=== PATIENT | female | born 1975 | race African-American/Black ===

== ENCOUNTER 2024-09-24 14:28 | Inpatient (IN) | payer MEDICAID ==
[~2024-09-24] VITALS: Ht 157.5 cm; Wt 106.6 kg
[2024-09-24] MEDS: IV NORMAL SALINE 1000 ML BAG IV ONE ×2 (14:50→17:28)
[2024-09-24] MEDS ORDERED: VANCOMYCIN IV 200 ML ONE (14:52)
[2024-09-24] MEDS ORDERED: PIPERACILLIN/TAZOBACTAM/D5W 50 ML IV ONE (14:52)
[2024-09-24] MEDS: PIPERACILLIN SODIUM/TAZOBACTAM 3.375 G in IV DEXTROSE 5% 50 ML IV ONE (14:56)
[2024-09-24 15:01] LABS: PLATELET COUNT (AUTO) 295 K/uL (179-408); RED BLOOD CELL COUNT(AUTO) 3.58 MIL/uL (3.63-4.92); RED CELL DISTRIBUTION WIDTH 18.6 % (12.3-17.7); WHITE BLOOD COUNT (AUTO) 4.5 K/uL (3.8-11.8)
[2024-09-24] MEDS ORDERED: MORP15TA PO (15:14)
[2024-09-24] MEDS ORDERED: ACET-3117 PO (15:14)
[2024-09-24] MEDS ORDERED: MIRT-74 PO (15:14)
[2024-09-24] MEDS ORDERED: ACET-2030 PO (15:14)
[2024-09-24] MEDS ORDERED: TIZA4TAB5 PO (15:14)
[2024-09-24] MEDS ORDERED: BISA-79 PO (15:14)
[2024-09-24] MEDS ORDERED: NALO4SPR NS (15:14)
[2024-09-24] MEDS ORDERED: MULT-594 PO (15:14)
[2024-09-24] MEDS ORDERED: HYDR-501 PO (15:14)
[2024-09-24] MEDS ORDERED: DOCU100T2 PO (15:14)
[2024-09-24] MEDS ORDERED: GABA300C PO (15:14)
[2024-09-24] MEDS ORDERED: OXYC5TAB3 PO (15:14)
[2024-09-24 15:16] LABS: ASPARTATE AMINOTRANSFERASE 14 U/L (15-37); CREATININE 0.6 mg/dL (0.6-1.3); SODIUM SERUM 141 mmol/L (136-145); TOTAL PROTEIN, SERUM 8.2 g/dL (6.4-8.2); UREA NITROGEN, BLOOD 12 mg/dL (7-18)
[2024-09-24 15:24] LABS: *BILIRUBIN,URIN NEGATIVE (NEGATIVE); *BLOOD, URINE 1+ (NEGATIVE); *CLARITY,URINE CLEAR (CLEAR); *COLOR,URINE YELLOW (YELLOW); *KETONES,URINE NEGATIVE (NEGATIVE); *PROTEIN,URINE NEGATIVE (NEGATIVE); *UROBILINOGEN,URINE 1.0 E.U./dl (NORMAL); LEUKOCYTE ESTERASE ,URINE 1+ (NEGATIVE); NITRITE, URINE NEGATIVE (NEGATIVE); UGLUCOSE NEGATIVE (NEGATIVE)
[2024-09-24] MEDS ORDERED: IPRATROPIUM BROMIDE 0.5 MG/2.5 ML NEBU ONE (15:24)
[2024-09-24] MEDS ORDERED: ALBUTEROL SULFATE 2.5 MG/3 ML NEBU ONE (15:24)
[2024-09-24 15:30] VITALS: O2SAT 95
[2024-09-24] MEDS: ALBUTEROL SULFATE 2.5 MG/3 ML NEBU NEB ONE (15:30)
[2024-09-24] MEDS: IPRATROPIUM BROMIDE 0.5 MG/2.5 ML NEBU NEB ONE (15:30)
[2024-09-24 15:45] VITALS: O2SAT 96
[2024-09-24] MEDS: VANCOMYCIN IV 1,000 MG in IV DEXTROSE 5% 250 ML IV ONE (15:45)
[2024-09-24 16:05] LABS: SQUAMOUS EPITHELIAL CELL,UR FEW /HPF (NONE SEEN)
[2024-09-24] MEDS ORDERED: KETOROLAC TROMETHAMINE 15 MG INJ ONE (17:19)
[2024-09-24] MEDS: KETOROLAC TROMETHAMINE 15 MG INJ IVP ONE (17:25)
[2024-09-24] MEDS ORDERED: MORPHINE SULFATE 4 MG/1 ML DISP.SYRIN ONE (18:20)
[2024-09-24] MEDS ORDERED: ONDANSETRON 4 MG/2 ML VIAL ONE (18:20)
[2024-09-24] MEDS: ONDANSETRON 4 MG/2 ML VIAL IV ONE (18:27)
[2024-09-24] MEDS: MORPHINE SULFATE 4 MG/1 ML DISP.SYRIN IV ONE (18:27)
[2024-09-24 18:30] VITALS: BP 94/52
[2024-09-24 19:00] VITALS: BP 106/38; TEMP 97.8; O2SAT 97
[2024-09-24] MEDS ORDERED: NALOXONE NASAL SPRAY 4 MG SPRAY NS PRN (21:00)
[2024-09-24] MEDS ORDERED: ENOXAPARIN SODIUM 40 MG/0.4 ML DISP.SYRIN SQ SCH (21:15)
[2024-09-24] MEDS ORDERED: ONDANSETRON 4 MG/2 ML VIAL IV PRN (21:15)
[2024-09-24] MEDS ORDERED: PIPERACILLIN SODIUM/TAZOBACTAM 3.375 G in IV DEXTROSE 5% 50 ML IV SCH (22:00)
[2024-09-24] MEDS: OXYCODONE HCL 5 MG TABLET PO PRN (22:11)
[2024-09-24] MEDS: GABAPENTIN 300 MG CAPSULE PO SCH (22:12)
[2024-09-24] MEDS: MIRTAZAPINE 15 MG TABLET PO SCH (22:14)
[2024-09-24] MEDS: ENOXAPARIN SODIUM 40 MG/0.4 ML DISP.SYRIN SQ SCH (22:21)
[2024-09-24] MEDS: PIPERACILLIN SODIUM/TAZOBACTAM 3.375 G in IV DEXTROSE 5% 50 ML IV SCH (22:52)
[2024-09-25] VITALS (7 sets, daily range): BP systolic 13–143; BP diastolic 49–74; TEMP 97.8–98.9; O2SAT 92–97
[2024-09-25] MEDS: ACETAMINOPHEN 325 MG TABLET PO PRN (00:21)
[2024-09-25] MEDS ORDERED: VANCOMYCIN IV 200 ML ONE (03:20)
[2024-09-25] MEDS: VANCOMYCIN IV 1,000 MG in IV DEXTROSE 5% 250 ML IV ONE (03:34)
[2024-09-25] MEDS ORDERED: PIPERACILLIN SODIUM/TAZOBACTAM 3.375 G in IV DEXTROSE 5% 50 ML IV SCH (06:00)
[2024-09-25] MEDS: PANTOPRAZOLE SODIUM 40 MG TABLET.DR PO SCH (06:46)
[2024-09-25 07:07] LABS: PLATELET COUNT (AUTO) 271 K/uL (179-408); RED BLOOD CELL COUNT(AUTO) 3.34 MIL/uL (3.63-4.92); RED CELL DISTRIBUTION WIDTH 19.0 % (12.3-17.7); WHITE BLOOD COUNT (AUTO) 3.9 K/uL (3.8-11.8)
[2024-09-25 07:27] LABS: ASPARTATE AMINOTRANSFERASE 11.0 U/L (15-37); CREATININE 0.7 mg/dL (0.6-1.3); SODIUM SERUM 142.0 mmol/L (136-145); TOTAL PROTEIN, SERUM 7.4 g/dL (6.4-8.2); UREA NITROGEN, BLOOD 9.0 mg/dL (7-18)
[2024-09-25] MEDS: MULTIVITAMINS,THERAPEUTIC TABLET PO SCH (08:46)
[2024-09-25] MEDS: DOCUSATE SODIUM 100 MG CAPSULE PO SCH (08:47)
[2024-09-25] MEDS: VANCOMYCIN HCL 1,500 MG in IV DEXTROSE 5% 500 ML IV SCH (10:49)
[2024-09-25] MEDS ORDERED: ALBU8.5H8 INH (11:33)
[2024-09-25] MEDS ORDERED: MORP15TA60 PO (11:44)
[2024-09-25] MEDS: MAGNESIUM OXIDE 400 MG TABLET PO ONE (12:13)
[2024-09-25] MEDS: PIPERACILLIN SODIUM/TAZOBACTAM 3.375 G in IV DEXTROSE 5% 100 ML IV SCH (13:04)
[2024-09-25] MEDS: MORPHINE SULFATE SR 15 MG TABLET.SA PO SCH (13:04)
[2024-09-25] MEDS: ARGININE/GLUTAMINE/CALCIUM BMB 1 EACH POWD.PACK PO SCH (17:25)
[2024-09-25] MEDS: TRAZODONE 50 MG TABLET PO SCH (21:29)
[2024-09-26 06:38] VITALS: BP 144/61; TEMP 99.6; O2SAT 97
[2024-09-26 06:50] LABS: PLATELET COUNT (AUTO) 296 K/uL (179-408); RED BLOOD CELL COUNT(AUTO) 3.52 MIL/uL (3.63-4.92); RED CELL DISTRIBUTION WIDTH 18.6 % (12.3-17.7); WHITE BLOOD COUNT (AUTO) 4.3 K/uL (3.8-11.8)
[2024-09-26 07:03] LABS: CREATININE 0.8 mg/dL (0.6-1.3); SODIUM SERUM 141.0 mmol/L (136-145); UREA NITROGEN, BLOOD 7.0 mg/dL (7-18)
[2024-09-26] MEDS: MAGNESIUM OXIDE 400 MG TABLET PO ONE (10:22)
[2024-09-26 10:44] VITALS: BP 126/63; TEMP 98.2; O2SAT 96
[2024-09-26] MEDS: SODIUM HYPOCHLORITE 0.125% (QUARTER STRENGTH) 473 ML BOTTLE TP SCH (14:15)
[2024-09-26 15:52] VITALS: BP 135/57; TEMP 98.6; O2SAT 94
[2024-09-26] MEDS ORDERED: NALOXONE 2 MG/2 ML SYRINGE IV PRN (18:00)
[2024-09-26 19:00] VITALS: BP 128/64; TEMP 98.7; O2SAT 96
[2024-09-26] MEDS: MUPIROCIN 2% OINT 22 GM TUBE NS SCH (21:00)
[2024-09-27 06:00] VITALS: BP 119/67; TEMP 98.3; O2SAT 94
[2024-09-27 08:11] LABS: PLATELET COUNT (AUTO) 286 K/uL (179-408); RED BLOOD CELL COUNT(AUTO) 3.50 MIL/uL (3.63-4.92); RED CELL DISTRIBUTION WIDTH 18.7 % (12.3-17.7); WHITE BLOOD COUNT (AUTO) 4.9 K/uL (3.8-11.8)
[2024-09-27 08:27] LABS: CREATININE 0.8 mg/dL (0.6-1.3); SODIUM SERUM 141.0 mmol/L (136-145); UREA NITROGEN, BLOOD 10.0 mg/dL (7-18)
[2024-09-27] MEDS ORDERED: TRAZ-252 PO (09:58)
[2024-09-27] MEDS ORDERED: CEPH500C2 PO (09:58)
[2024-09-27] MEDS ORDERED: MUPI22OI2 NS (09:58)
[2024-09-27] MEDS: VANCOMYCIN HCL 1,500 MG in IV DEXTROSE 5% 500 ML IV SCH (10:00)
[2024-09-27] MEDS: MAGNESIUM OXIDE 400 MG TABLET PO ONE (10:07)
[2024-09-27 11:42] VITALS: BP 126/50; TEMP 98.2; O2SAT 93
[2024-09-27 16:26] VITALS: BP 125/56; TEMP 98.8; O2SAT 95
[2024-09-27 20:20] VITALS: BP 132/66; TEMP 98.4; O2SAT 93
[2024-09-27] MEDS: ACETAMINOPHEN 325 MG TABLET PO PRN (20:32)
[2024-09-28 04:27] VITALS: BP 111/69; TEMP 97.7; O2SAT 95
[2024-09-28] MEDS: SULFAMETH/TRIMETH 800/160 MG TABLET PO SCH (10:45)
[2024-09-28 11:09] VITALS: BP 111/59; TEMP 97.6; O2SAT 97
[2024-09-28 15:46] VITALS: BP 125/62; TEMP 98.7; O2SAT 93
[2024-09-28 21:23] VITALS: BP 127/70; TEMP 99; O2SAT 95
[2024-09-29 12:00] VITALS: BP 116/59; TEMP 98.8; O2SAT 96
[2024-09-29 16:00] VITALS: BP 126/58; TEMP 98.2; O2SAT 95
[2024-09-29 19:00] VITALS: BP 118/56; TEMP 98.7; O2SAT 97
[2024-09-30 05:00] VITALS: BP 107/47; TEMP 98.2; O2SAT 96
[2024-09-30 11:38] VITALS: BP 108/48; TEMP 98.3; O2SAT 96
[2024-09-30 16:00] VITALS: BP 129/63; TEMP 98.5; O2SAT 96
[2024-09-30 19:00] VITALS: BP 113/64; TEMP 97.7; O2SAT 98
[2024-10-01 04:00] VITALS: BP 128/64; TEMP 98.4; O2SAT 97
[2024-10-01 11:31] VITALS: BP 103/53; TEMP 98.8; O2SAT 95
[2024-10-01 15:32] VITALS: BP 118/65; TEMP 98.6; O2SAT 98
[2024-10-01 20:40] VITALS: BP 103/70; TEMP 99.1; O2SAT 96
[2024-10-02 05:58] VITALS: BP 118/68; TEMP 98.4; O2SAT 92
[2024-10-02] MEDS: TIZANIDINE HCL 4 MG TABLET PO PRN (09:37)
[2024-10-02 11:35] VITALS: BP 104/62; TEMP 98.2; O2SAT 95
[2024-10-02 15:35] VITALS: BP 101/56; TEMP 98.3; O2SAT 98
[2024-10-02 19:00] VITALS: BP 117/55; TEMP 98.5; O2SAT 94
[2024-10-02] MEDS: BISACODYL 5 MG TABLET.DR PO PRN (23:13)
[2024-10-03 06:35] VITALS: BP 101/41; TEMP 98.6; O2SAT 96
[2024-10-03 11:58] VITALS: BP 111/49; TEMP 98.7; O2SAT 97
[2024-10-03 16:00] VITALS: BP 118/50; TEMP 98; O2SAT 100
[2024-10-07] MEDS ORDERED: APIX5TAB PO (09:56)
== END 2024-10-03 17:30 | DRG 383 ==
LOC: ER 14:28 → TELE3 18:29 → MEDSURG3 09-25 10:04
PROVIDERS: ADMIT Internal Medicine; ATTEND Nurse Practitioner Family
PROC: 05HB33Z Insertion of Infusion Device into Right Basilic Vein, Percutaneous Approach (ICD-10-PCS; principal; 2024-09-25)
DX: L03.115 Cellulitis of right lower limb (principal); E44.1 Mild protein-calorie malnutrition; E11.40 Type 2 diabetes mellitus with diabetic neuropathy, unspecified; E88.09 Other disorders of plasma-protein metabolism, not elsewhere classified; N39.0 Urinary tract infection, site not specified; T85.613A Breakdown (mechanical) of artificial skin graft and decellularized allodermis, initial encounter; D64.9 Anemia, unspecified; B96.4 Proteus (mirabilis) (morganii) as the cause of diseases classified elsewhere; E11.65 Type 2 diabetes mellitus with hyperglycemia; E11.9 Type 2 diabetes mellitus without complications; J45.909 Unspecified asthma, uncomplicated; S82.491 Other fracture of shaft of right fibula; V03.99XD Pedestrian with other conveyance injured in collision with car, pick-up truck or van, unspecified whether traffic or nontraffic accident, subsequent encounter; V03.92XA Pedestrian on skateboard injured in collision with car, pick-up truck or van, unspecified whether traffic or nontraffic accident, initial encounter; Y92.89 Other specified places as the place of occurrence of the external cause; E66.01 Morbid (severe) obesity due to excess calories; Z68.41 Body mass index [BMI] 40.0-44.9, adult; G47.00 Insomnia, unspecified; F41.9 Anxiety disorder, unspecified; F32.A Depression, unspecified; G89.29 Other chronic pain; F15.10 Other stimulant abuse, uncomplicated; Z22.322 Carrier or suspected carrier of Methicillin resistant Staphylococcus aureus; Z59.01 Sheltered homelessness
CPT/HCPCS: 36415; 71045; 73590; 73610; 83605; 83735; 84100; 84484; 85025; 85730; 87040; 87077; 87086; A4606; A4663; A6213; G0378; J1650; J1885; J2270; J2405; J2543; J3373; J3374; J3590; J7040; J7050; J7060

== ENCOUNTER 2024-10-04 20:25 | Inpatient (IN) | payer MEDICAID ==
[~2024-10-04] VITALS: Ht 154.9 cm; Wt 145.1 kg
[~2024-10-04 20:25] MED LIST: ACET-2030 PO; ACET-3117 PO; ALBU8.5H8 INH; BISA-79 PO; CEPH500C2 PO; DOCU100T2 PO; GABA300C PO; HYDR-501 PO; MIRT-74 PO; MORP15TA60 PO; MULT-594 PO; MUPI22OI2 NS; NALO4SPR NS; OXYC5TAB3 PO; TIZA4TAB5 PO; TRAZ-252 PO
[2024-10-04 21:19] LABS: PLATELET COUNT (AUTO) 352 K/uL (179-408); RED BLOOD CELL COUNT(AUTO) 3.95 MIL/uL (3.63-4.92); RED CELL DISTRIBUTION WIDTH 19.2 % (12.3-17.7); WHITE BLOOD COUNT (AUTO) 5.0 K/uL (3.8-11.8)
[2024-10-04] MEDS ORDERED: ASPIRIN 81 MG TAB.CHEW ONE (21:34)
[2024-10-04] MEDS: ASPIRIN 81 MG TAB.CHEW PO ONE (21:36)
[2024-10-04 21:37] LABS: ASPARTATE AMINOTRANSFERASE 13 U/L (15-37); CREATININE 0.6 mg/dL (0.6-1.3); SODIUM SERUM 140 mmol/L (136-145); TOTAL PROTEIN, SERUM 8.3 g/dL (6.4-8.2); UREA NITROGEN, BLOOD 14 mg/dL (7-18)
[2024-10-04] MEDS ORDERED: MORPHINE SULFATE 2 MG/1 ML DISP.SYRIN ONE (22:43)
[2024-10-04] MEDS ORDERED: ONDANSETRON 4 MG/2 ML VIAL ONE (22:43)
[2024-10-04] MEDS ORDERED: MORPHINE SULFATE 4 MG/1 ML DISP.SYRIN ONE (22:43)
[2024-10-04] MEDS: ONDANSETRON 4 MG/2 ML VIAL IV ONE (22:50)
[2024-10-04] MEDS: MORPHINE SULFATE 4 MG/1 ML DISP.SYRIN IV ONE (22:50)
[2024-10-04] MEDS ORDERED: IOHEXOL 350 100 ML INFUS..BTL ONE (22:55)
[2024-10-05] VITALS (7 sets, daily range): BP systolic 88–142; BP diastolic 70–90; TEMP 98.4–99.4; O2SAT 94–99
[2024-10-05] MEDS ORDERED: ONDANSETRON 4 MG/2 ML VIAL IV PRN (01:30)
[2024-10-05] MEDS ORDERED: MISCELLANEOUS MED PO SCH (01:45)
[2024-10-05] MEDS: APIXABAN 5 MG TABLET PO SCH (02:57)
[2024-10-05] MEDS ORDERED: MORPHINE SULFATE 4 MG/1 ML DISP.SYRIN ONE (02:59)
[2024-10-05] MEDS: MORPHINE SULFATE 4 MG/1 ML DISP.SYRIN IV PRN (03:09)
[2024-10-05] MEDS: PANTOPRAZOLE SODIUM 40 MG TABLET.DR PO SCH (08:15)
[2024-10-05] MEDS ORDERED: ALBUTEROL SULFATE 8 GM HFA.AER.AD INH PRN (09:45)
[2024-10-05] MEDS ORDERED: QUETIAPINE FUMARATE 25 MG TABLET PO PRN (10:00)
[2024-10-05] MEDS: QUETIAPINE FUMARATE 25 MG TABLET PO STA (10:51)
[2024-10-05] MEDS: TIZANIDINE HCL 4 MG TABLET PO SCH (13:45)
[2024-10-05] MEDS: GABAPENTIN 300 MG CAPSULE PO SCH (13:46)
[2024-10-05] MEDS: TRAZODONE 50 MG TABLET PO SCH (20:52)
[2024-10-05] MEDS: OXYCODONE HCL 5 MG TABLET PO PRN (22:43)
[2024-10-06] VITALS (12 sets, daily range): BP systolic 100–147; BP diastolic 5–80; TEMP 97.1–98.3; O2SAT 94–98
[2024-10-06] MEDS: HYDROXYZINE PAMOATE 25 MG CAPSULE PO PRN (01:54)
[2024-10-06 05:13] LABS: PLATELET COUNT (AUTO) 354 K/uL (179-408); RED BLOOD CELL COUNT(AUTO) 3.80 MIL/uL (3.63-4.92); RED CELL DISTRIBUTION WIDTH 18.7 % (12.3-17.7); WHITE BLOOD COUNT (AUTO) 5.6 K/uL (3.8-11.8)
[2024-10-06 05:24] LABS: CREATININE 0.7 mg/dL (0.6-1.3); SODIUM SERUM 139.0 mmol/L (136-145); UREA NITROGEN, BLOOD 14.0 mg/dL (7-18)
[2024-10-06] MEDS: MORPHINE SULFATE 4 MG/1 ML DISP.SYRIN IV PRN (08:02)
[2024-10-06] MEDS ORDERED: DULOXETINE 30 MG CAPSULE.DR PO SCH (09:00)
[2024-10-06] MEDS: SERTRALINE HCL 50 MG TABLET PO SCH (11:46)
[2024-10-07 00:25] VITALS: BP 103/56; TEMP 98.4; O2SAT 93
[2024-10-07 05:24] VITALS: BP 103/57; TEMP 99; O2SAT 95
[2024-10-07 07:23] VITALS: BP 124/53; TEMP 98.4; O2SAT 96
[2024-10-07] MEDS ORDERED: APIX5TAB PO (09:56)
[2024-10-07 11:40] VITALS: BP 104/48; TEMP 98.3; O2SAT 96
[2024-10-07 15:21] VITALS: BP 120/50; TEMP 97.6; O2SAT 100
[2024-10-07] MEDS: ACETAMINOPHEN 325 MG TABLET PO PRN (15:40)
[2024-10-07] MEDS: METHYL SALICYLATE/MENTHOL CREAM 28 GM TUBE TOP PRN (17:38)
[2024-10-07 20:00] VITALS: BP 98/46; TEMP 98; O2SAT 96
[2024-10-07] MEDS: NYSTATIN POWDER 15 GM BOTTLE TOP SCH (20:50)
[2024-10-07] MEDS: OXYCODONE HCL 5 MG TABLET PO PRN (23:29)
[2024-10-08 06:00] VITALS: BP 120/55; TEMP 98.2
[2024-10-08 10:55] VITALS: BP 104/46; TEMP 97.6; O2SAT 96
[2024-10-08] MEDS: SODIUM HYPOCHLORITE 0.125% (QUARTER STRENGTH) 473 ML BOTTLE TP SCH (12:23)
[2024-10-08 15:23] VITALS: BP 132/75; TEMP 98.2; O2SAT 97
[2024-10-08 19:00] VITALS: BP 160/57; TEMP 98.3; O2SAT 95
[2024-10-09 05:00] VITALS: BP 108/54; TEMP 98.1; O2SAT 95
[2024-10-09] MEDS: OXYCODONE HCL 5 MG TABLET PO PRN (09:07)
[2024-10-09 11:33] VITALS: BP 115/63; TEMP 98.1; O2SAT 98
[2024-10-09] MEDS ORDERED: BUPIVACAINE 0.25% 30 ML VIAL INJ PRN (15:00)
[2024-10-09 15:41] VITALS: BP 104/53; TEMP 98.4; O2SAT 95
[2024-10-09 20:46] VITALS: BP 106/52; TEMP 98.2; O2SAT 95
[2024-10-10 11:10] VITALS: BP 115/51; TEMP 98.1; O2SAT 98
[2024-10-10 15:10] VITALS: BP 96/46; TEMP 97.9; O2SAT 98
[2024-10-10 19:45] VITALS: BP 108/54; TEMP 98.6; O2SAT 95
[2024-10-11] MEDS: QUETIAPINE FUMARATE 25 MG TABLET PO PRN (03:47)
[2024-10-11 04:58] VITALS: BP 113/64; TEMP 99; O2SAT 92
[2024-10-11 06:32] LABS: PLATELET COUNT (AUTO) 339 K/uL (179-408); RED BLOOD CELL COUNT(AUTO) 3.52 MIL/uL (3.63-4.92); RED CELL DISTRIBUTION WIDTH 18.9 % (12.3-17.7); WHITE BLOOD COUNT (AUTO) 4.4 K/uL (3.8-11.8)
[2024-10-11 06:45] LABS: CREATININE 0.7 mg/dL (0.6-1.3); SODIUM SERUM 143.0 mmol/L (136-145); UREA NITROGEN, BLOOD 17.0 mg/dL (7-18)
[2024-10-11 08:15] VITALS: BP 108/61; TEMP 98.7; O2SAT 96
[2024-10-11] MEDS: ARGININE/GLUTAMINE/CALCIUM BMB 1 EACH POWD.PACK PO SCH (09:00)
[2024-10-11] MEDS: MAGNESIUM HYDROXIDE 30 ML LIQUID UDC PO PRN (09:02)
[2024-10-11 11:38] VITALS: BP 105/49; TEMP 97.7; O2SAT 95
[2024-10-11 15:00] VITALS: BP 98/52; TEMP 97.8; O2SAT 96
[2024-10-11] MEDS: PIPERACILLIN SODIUM/TAZOBACTAM 3.375 G in IV DEXTROSE 5% 100 ML IV SCH (15:31)
[2024-10-11 19:00] VITALS: BP 100/55; TEMP 98.3; O2SAT 100
[2024-10-11] MEDS: APIXABAN 5 MG TABLET PO SCH (20:10)
[2024-10-11] MEDS ORDERED: CIPROFLOXACIN HCL 250 MG TABLET PO SCH (21:00)
[2024-10-12 06:02] VITALS: BP 107/55; TEMP 98.4; O2SAT 95
[2024-10-12 07:01] LABS: PLATELET COUNT (AUTO) 366 K/uL (179-408); RED BLOOD CELL COUNT(AUTO) 3.71 MIL/uL (3.63-4.92); RED CELL DISTRIBUTION WIDTH 19.0 % (12.3-17.7); WHITE BLOOD COUNT (AUTO) 5.3 K/uL (3.8-11.8)
[2024-10-12 07:19] LABS: CREATININE 0.6 mg/dL (0.6-1.3); SODIUM SERUM 139.0 mmol/L (136-145); UREA NITROGEN, BLOOD 14.0 mg/dL (7-18)
[2024-10-12 11:52] VITALS: BP 106/46; TEMP 97.9; O2SAT 97
[2024-10-12 15:02] VITALS: BP 101/48; TEMP 97.8; O2SAT 96
[2024-10-12] MEDS: REMEDY ESSENTIAL ZINC PASTE 113 GM TP PRN (17:09)
[2024-10-12 21:00] VITALS: BP 121/79; TEMP 98.1; O2SAT 99
[2024-10-12 22:00] VITALS: BP 83/44; TEMP 98.1; O2SAT 99
[2024-10-13 06:24] VITALS: BP 136/62; TEMP 98.3; O2SAT 98
[2024-10-13] MEDS ORDERED: KETOROLAC TROMETHAMINE 30 MG INJ IM PRN (09:45)
[2024-10-13 16:00] VITALS: BP 119/53; TEMP 87.2; O2SAT 97
[2024-10-13 19:47] VITALS: BP 96/48; TEMP 98.3; O2SAT 93
[2024-10-14 05:49] VITALS: BP 128/82; TEMP 98.5; O2SAT 93
[2024-10-14 11:29] VITALS: BP 119/65; TEMP 98.4; O2SAT 95
[2024-10-14 11:55] VITALS: BP 98/45
[2024-10-14 15:49] VITALS: BP 110/78; TEMP 98.4; O2SAT 96
[2024-10-14 17:56] VITALS: BP 103/43
[2024-10-14 21:38] VITALS: BP 113/58; TEMP 98.3; O2SAT 94
[2024-10-15 06:31] VITALS: BP 116/39; TEMP 98.2; O2SAT 95
[2024-10-15 07:20] LABS: PLATELET COUNT (AUTO) 312 K/uL (179-408); RED BLOOD CELL COUNT(AUTO) 3.74 MIL/uL (3.63-4.92); RED CELL DISTRIBUTION WIDTH 19.1 % (12.3-17.7); WHITE BLOOD COUNT (AUTO) 4.6 K/uL (3.8-11.8)
[2024-10-15 07:49] LABS: CREATININE 0.9 mg/dL (0.6-1.3); SODIUM SERUM 143.0 mmol/L (136-145); UREA NITROGEN, BLOOD 15.0 mg/dL (7-18)
[2024-10-15 11:05] VITALS: BP 126/54; TEMP 98.4; O2SAT 94
[2024-10-15 15:31] VITALS: BP 120/70; TEMP 97.7; O2SAT 96
[2024-10-15 19:45] VITALS: BP 103/61; TEMP 98.4; O2SAT 96
[2024-10-16 06:25] VITALS: BP 120/48; TEMP 98.6; O2SAT 97
[2024-10-16 10:38] VITALS: BP 140/52; TEMP 98; O2SAT 94
[2024-10-16 15:50] VITALS: BP 116/46; TEMP 98; O2SAT 94
[2024-10-16 19:45] VITALS: BP 94/48; TEMP 98.1; O2SAT 93
[2024-10-16 21:29] VITALS: BP 119/62; TEMP 98.4; O2SAT 95
[2024-10-17 06:17] VITALS: BP 117/52; TEMP 98.2; O2SAT 96
[2024-10-17 10:36] VITALS: BP 98/54; TEMP 98; O2SAT 94
[2024-10-17 15:50] VITALS: BP 98/42; TEMP 98; O2SAT 96
[2024-10-17 21:40] VITALS: BP 115/65; TEMP 98.1
[2024-10-18 06:30] VITALS: BP 132/62; TEMP 99; O2SAT 96
[2024-10-18 12:08] VITALS: BP 110/53; TEMP 98.3; O2SAT 95
[2024-10-18 15:30] VITALS: BP 122/62; TEMP 97.8; O2SAT 95
[2024-10-18 19:00] VITALS: BP 130/64; TEMP 98.8; O2SAT 97
[2024-10-19] VITALS (12 sets, daily range): BP systolic 106–139; BP diastolic 55–77; TEMP 97.8–98.9; O2SAT 90–99
[2024-10-19] MEDS: ALBUTEROL SULFATE 2.5 MG/3 ML NEBU NEB PRN (11:23)
[2024-10-20] VITALS (17 sets, daily range): BP systolic 109–146; BP diastolic 53–72; TEMP 98.4–98.8; O2SAT 94–99
[2024-10-21] VITALS (8 sets, daily range): BP systolic 111–124; BP diastolic 47–61; TEMP 97.8–98.3; O2SAT 94–100
[2024-10-21] MEDS: SERTRALINE HCL 50 MG TABLET PO SCH (08:56)
[2024-10-22 07:07] VITALS: BP 152/72; TEMP 99.5; O2SAT 99
[2024-10-22] MEDS: ACIDOPHILUS/BULGARICUS CHEW TAB PO SCH (10:45)
[2024-10-22] MEDS: HYDROCODONE/APAP 10-325 MG TABLET PO PRN (10:47)
[2024-10-22 11:41] VITALS: BP 107/51; TEMP 98.5; O2SAT 97
[2024-10-22 14:34] VITALS: O2SAT 97
[2024-10-22 14:44] VITALS: O2SAT 99
[2024-10-22 15:58] VITALS: BP 127/77; TEMP 97.8; O2SAT 97
[2024-10-22 19:00] VITALS: BP 104/51; TEMP 98.1; O2SAT 95
[2024-10-22] MEDS: DOCUSATE SODIUM 100 MG CAPSULE PO SCH (20:56)
[2024-10-22] MEDS ORDERED: PIPERACILLIN SODIUM/TAZO 3.375 GM VIAL ONE (22:23)
[2024-10-23] VITALS (9 sets, daily range): BP systolic 111–153; BP diastolic 62–78; TEMP 97.6–98.5; O2SAT 96–99
[2024-10-23] MEDS ORDERED: PIPERACILLIN SODIUM/TAZO 3.375 GM VIAL ONE (01:10)
[2024-10-23] MEDS ORDERED: ONDANSETRON 4 MG/2 ML VIAL IV PRN (01:30)
[2024-10-23] MEDS ORDERED: MAGNESIUM HYDROXIDE 30 ML LIQUID UDC PO PRN (01:30)
[2024-10-23] MEDS ORDERED: REMEDY ESSENTIAL ZINC PASTE 113 GM TP PRN (01:30)
[2024-10-23] MEDS: HYDROCODONE/APAP 10-325 MG TABLET PO PRN (03:10)
[2024-10-23] MEDS: ALBUTEROL SULFATE 2.5 MG/3 ML NEBU NEB PRN (05:30)
[2024-10-23] MEDS ORDERED: PIPERACILLIN SODIUM/TAZOBACTAM 3.375 G in IV DEXTROSE 5% 100 ML IV SCH (06:00)
[2024-10-23] MEDS: HYDROXYZINE PAMOATE 25 MG CAPSULE PO PRN (06:28)
[2024-10-23] MEDS: PANTOPRAZOLE SODIUM 40 MG TABLET.DR PO SCH (06:28)
[2024-10-23 06:45] LABS: PLATELET COUNT (AUTO) 235 K/uL (179-408); RED BLOOD CELL COUNT(AUTO) 3.50 MIL/uL (3.63-4.92); RED CELL DISTRIBUTION WIDTH 19.3 % (12.3-17.7); WHITE BLOOD COUNT (AUTO) 4.3 K/uL (3.8-11.8)
[2024-10-23 07:03] LABS: ASPARTATE AMINOTRANSFERASE 9.0 U/L (15-37); CREATININE 0.6 mg/dL (0.6-1.3); SODIUM SERUM 139.0 mmol/L (136-145); TOTAL PROTEIN, SERUM 7.7 g/dL (6.4-8.2); UREA NITROGEN, BLOOD 18.0 mg/dL (7-18)
[2024-10-23] MEDS: ACIDOPHILUS/BULGARICUS CHEW TAB PO SCH (08:29)
[2024-10-23] MEDS: TIZANIDINE HCL 4 MG TABLET PO SCH (08:29)
[2024-10-23] MEDS: GABAPENTIN 300 MG CAPSULE PO SCH (08:29)
[2024-10-23] MEDS: SERTRALINE HCL 50 MG TABLET PO SCH (08:30)
[2024-10-23] MEDS: SODIUM HYPOCHLORITE 0.125% (QUARTER STRENGTH) 473 ML BOTTLE TP SCH (08:30)
[2024-10-23] MEDS: APIXABAN 5 MG TABLET PO SCH (08:31)
[2024-10-23] MEDS: ARGININE/GLUTAMINE/CALCIUM BMB 1 EACH POWD.PACK PO SCH (08:32)
[2024-10-23] MEDS: METHYL SALICYLATE/MENTHOL CREAM 28 GM TUBE TOP PRN (17:12)
[2024-10-23] MEDS: TRAZODONE 50 MG TABLET PO SCH (21:24)
[2024-10-24] VITALS (13 sets, daily range): BP systolic 108–137; BP diastolic 60–70; TEMP 97.7–98.1; O2SAT 94–99
[2024-10-24 02:43] LABS: *BILIRUBIN,URIN NEGATIVE (NEGATIVE); *BLOOD, URINE NEGATIVE (NEGATIVE); *CLARITY,URINE SLIGHTLY CLOUDY (CLEAR); *COLOR,URINE YELLOW (YELLOW); *KETONES,URINE NEGATIVE (NEGATIVE); *PROTEIN,URINE NEGATIVE (NEGATIVE); *UROBILINOGEN,URINE 1.0 E.U./dl (NORMAL); LEUKOCYTE ESTERASE ,URINE 2+ (NEGATIVE); NITRITE, URINE NEGATIVE (NEGATIVE); UGLUCOSE NEGATIVE (NEGATIVE)
[2024-10-24 03:00] LABS: CALCIUM OXALATE CRYSTALS,UR RARE /HPF (NONE SEEN)
[2024-10-24 03:01] LABS: SQUAMOUS EPITHELIAL CELL,UR MODERATE /HPF (NONE SEEN)
[2024-10-24] MEDS: ACETAMINOPHEN 325 MG TABLET PO PRN (04:57)
[2024-10-24] MEDS ORDERED: NALOXONE HCL 0.4 MG/ML AMPUL IV PRN (21:00)
[2024-10-24] MEDS: QUETIAPINE FUMARATE 25 MG TABLET PO PRN (21:08)
[2024-10-25] VITALS (16 sets, daily range): BP systolic 116–151; BP diastolic 56–72; TEMP 97.8–98; O2SAT 94–99
[2024-10-25] MEDS: OXYCODONE HCL 10 MG TAB.SR.12H PO SCH (00:06)
[2024-10-26 06:00] VITALS: BP 134/81; TEMP 98.7; O2SAT 98
[2024-10-26 15:07] VITALS: BP 128/59; TEMP 98; O2SAT 96
[2024-10-26 20:00] VITALS: BP 127/64; TEMP 98.8; O2SAT 95
[2024-10-26] MEDS: NITROFURANTOIN/NITROFURAN MAC 100 MG CAPSULE PO SCH (21:18)
[2024-10-26] MEDS: ATORVASTATIN 10 MG TABLET PO SCH (21:18)
[2024-10-27 04:00] VITALS: BP 118/65; TEMP 98.2; O2SAT 94
[2024-10-27 10:50] VITALS: BP 126/80; TEMP 98.4; O2SAT 93
[2024-10-27 15:04] VITALS: BP 145/61; TEMP 98.3; O2SAT 98
[2024-10-27 19:45] VITALS: BP 119/56; TEMP 98.4; O2SAT 95
[2024-10-28 06:19] VITALS: BP 113/56; TEMP 98.5; O2SAT 92
[2024-10-28 11:11] VITALS: BP 105/66; TEMP 97.9; O2SAT 95
[2024-10-28 16:16] VITALS: BP 110/71; TEMP 98; O2SAT 96; O2SAT 97
[2024-10-28 19:00] VITALS: BP 103/64; TEMP 98.2; O2SAT 95
[2024-10-29 06:00] VITALS: BP 106/57; TEMP 98.1; O2SAT 95
[2024-10-29 07:35] VITALS: O2SAT 99
[2024-10-29 11:30] VITALS: BP 120/59; TEMP 98.1; O2SAT 95
[2024-10-29] MEDS: MEROPENEM 500 MG in IV NORMAL SALINE 50 ML IV SCH (14:48)
[2024-10-29 16:00] VITALS: BP 115/50; TEMP 98.6; O2SAT 95
[2024-10-29 19:37] VITALS: BP 102/51; TEMP 98.6; O2SAT 93
[2024-10-30 05:00] VITALS: BP 153/51; TEMP 98.6; O2SAT 93
[2024-10-30 10:43] VITALS: BP_SYST 138; BP_SYST 149; BP_DIAS 66; BP_DIAS 82; TEMP 98.8; O2SAT 94; O2SAT 96
[2024-10-30 15:49] VITALS: BP 104/58; TEMP 98.1; O2SAT 94
[2024-10-30 19:00] VITALS: BP 117/70; TEMP 98.9; O2SAT 95
[2024-10-31 06:54] VITALS: BP 118/65; TEMP 98.3; O2SAT 94
[2024-10-31 10:59] VITALS: BP 136/60; TEMP 98.7; O2SAT 95
[2024-10-31 14:55] VITALS: BP 125/59; TEMP 98.4; O2SAT 98
[2024-10-31 19:00] VITALS: BP 104/58; TEMP 98.1; O2SAT 98
[2024-11-01 06:56] LABS: CREATININE 0.6 mg/dL (0.6-1.3); SODIUM SERUM 139.0 mmol/L (136-145); UREA NITROGEN, BLOOD 15.0 mg/dL (7-18)
[2024-11-01 07:01] VITALS: BP_SYST 48; TEMP 98.2; O2SAT 94
[2024-11-01 11:33] VITALS: BP 126/58; TEMP 97.9; O2SAT 96
[2024-11-01 14:29] VITALS: BP 137/79; TEMP 97.8; O2SAT 96
[2024-11-01 19:45] VITALS: BP 158/90; TEMP 98.2; O2SAT 93
[2024-11-01 23:29] VITALS: O2SAT 99
[2024-11-02 11:32] VITALS: BP 132/65; TEMP 98.2; O2SAT 95
[2024-11-02 15:38] VITALS: BP 120/66; TEMP 98.9; O2SAT 95
[2024-11-02 19:05] VITALS: BP 118/67; TEMP 98.7; O2SAT 90
[2024-11-03 06:56] VITALS: BP 113/69; TEMP 92.7; O2SAT 93
[2024-11-03 09:07] LABS: PLATELET COUNT (AUTO) 274 K/uL (179-408); RED BLOOD CELL COUNT(AUTO) 3.90 MIL/uL (3.63-4.92); RED CELL DISTRIBUTION WIDTH 19.5 % (12.3-17.7); WHITE BLOOD COUNT (AUTO) 3.7 K/uL (3.8-11.8)
[2024-11-03 09:17] LABS: CREATININE 0.6 mg/dL (0.6-1.3); SODIUM SERUM 145.0 mmol/L (136-145); UREA NITROGEN, BLOOD 12.0 mg/dL (7-18)
[2024-11-03 11:17] VITALS: BP 122/76; TEMP 98.5; O2SAT 95
[2024-11-03 15:13] VITALS: BP 131/77; TEMP 98; O2SAT 96
[2024-11-03 19:00] VITALS: BP 107/61; TEMP 98.9; O2SAT 94
[2024-11-04 05:59] VITALS: BP 129/63; TEMP 98.7; O2SAT 98
[2024-11-04 11:14] VITALS: BP 119/61; TEMP 98.4; O2SAT 98
[2024-11-04 14:57] VITALS: BP 130/90; TEMP 98.2; O2SAT 98
[2024-11-04 19:45] VITALS: BP 133/76; TEMP 98.2; O2SAT 95
[2024-11-05 06:34] VITALS: BP 118/81; TEMP 98.2; O2SAT 96
[2024-11-05 10:51] VITALS: BP 125/63; TEMP 98.4; O2SAT 96
[2024-11-05 15:54] VITALS: BP 109/68; TEMP 98.2; O2SAT 97
[2024-11-05 19:00] VITALS: BP 107/68; TEMP 98.6; O2SAT 95
[2024-11-06 06:45] VITALS: BP 143/64; TEMP 99.4; O2SAT 97
[2024-11-06 08:00] VITALS: BP 132/80; TEMP 98; O2SAT 98
[2024-11-06 09:50] VITALS: BP 130/60; TEMP 98.6; O2SAT 95
[2024-11-06 11:56] VITALS: BP 152/65; TEMP 98.4; O2SAT 95
== END 2024-11-06 15:47 | DRG 951 ==
LOC: ER 20:33 → UNDOADMIN 10-05 02:06 → TELE3 10-05 02:06 → CCU 10-05 06:10 → TELE3 10-06 10:02 → MEDSURG3 10-07 10:15
PROVIDERS: ADMIT Registered Nurse Psychiatric/Mental Health; ATTEND Internal Medicine
PROC: 05HB33Z Insertion of Infusion Device into Right Basilic Vein, Percutaneous Approach (ICD-10-PCS; principal; 2024-10-05)
PROC: 0KBS0ZZ Excision of Right Lower Leg Muscle, Open Approach (ICD-10-PCS; 2024-10-10)
PROC: 0KBS0ZZ Excision of Right Lower Leg Muscle, Open Approach (ICD-10-PCS; 2024-10-22)
PROC: 0KBS0ZZ Excision of Right Lower Leg Muscle, Open Approach (ICD-10-PCS; 2024-11-01)
PROC: 05HF33Z Insertion of Infusion Device into Left Cephalic Vein, Percutaneous Approach (ICD-10-PCS; 2024-11-03)
DX: I26.99 Other pulmonary embolism without acute cor pulmonale (principal); E44.0 Moderate protein-calorie malnutrition; J15.9 Unspecified bacterial pneumonia; F33.3 Major depressive disorder, recurrent, severe with psychotic symptoms; D68.59 Other primary thrombophilia; E88.09 Other disorders of plasma-protein metabolism, not elsewhere classified; L97.812 Non-pressure chronic ulcer of other part of right lower leg with fat layer exposed; I26.93 Single subsegmental thrombotic pulmonary embolism without acute cor pulmonale; Z75.1 Person awaiting admission to adequate facility elsewhere; L03.115 Cellulitis of right lower limb; M84.463A Pathological fracture, right fibula, initial encounter for fracture; N39.0 Urinary tract infection, site not specified; Z68.44 Body mass index [BMI] 60.0-69.9, adult; E66.01 Morbid (severe) obesity due to excess calories; B96.20 Unspecified Escherichia coli [E. coli] as the cause of diseases classified elsewhere; Z16.12 Extended spectrum beta lactamase (ESBL) resistance; G62.9 Polyneuropathy, unspecified; G89.4 Chronic pain syndrome; M15.9 Polyosteoarthritis, unspecified; G47.00 Insomnia, unspecified; E78.5 Hyperlipidemia, unspecified; F41.9 Anxiety disorder, unspecified; J45.909 Unspecified asthma, uncomplicated; Z79.899 Other long term (current) drug therapy; D64.9 Anemia, unspecified; Z79.01 Long term (current) use of anticoagulants; Z87.440 Personal history of urinary (tract) infections; Z87.81 Personal history of (healed) traumatic fracture; R73.9 Hyperglycemia, unspecified; R60.9 Edema, unspecified; Z86.14 Personal history of Methicillin resistant Staphylococcus aureus infection
CPT/HCPCS: 36415; 71045; 71275; 83735; 84100; 84443; 84484; 85025; 87077; 87086; 93307; 94640; 94664; 94760; 97535-GO-CO; A4606; A4663; A6213; G0378; J2185; J2270; J2405; J2543; J3490; Q9967